=== PATIENT | female | born 1985 | race African-American/Black ===

== ENCOUNTER 2020-03-17 02:15 | Emergency (ER) | payer OTHER ==
[~2020-03-17] VITALS: Ht 175.3 cm; Wt 93.4 kg
[2020-03-17 02:24] VITALS: BP 116/73
[2020-03-17] MEDS ORDERED: Pantoprazole Inj IV ONE (02:30)
[2020-03-17] MEDS ORDERED: Mylanta II UD 30ml ORAL ONE (02:30)
--- NOTE | 2020-03-17 02:31 | Emergency Room Report ---
History of Present Illness General Chief Complaint: Abdominal Pain Source: Patient Present Illness HPI This is a 34-year-old female who is 1 para 0 approximately 13 weeks . She initially had a twin gestation but lost 1 at approximately 7 weeks. Since then she had follow-up and had normal ultrasound. She is Rh+. She presents with chief complaint of epigastric pain. She has intermittent vomiting with this . No fever chills. Has nausea and vomiting but no diarrhea. No urinary complaint. Pain is sharp and burning in nature. Pain is localized to the epigastric area. No radiation. It is 8 out of 10. Allergies: Coded Allergies: No Known Allergies (Unverified , 03/17/20) COVID-19 Screening Contact w/high risk pt: No Recent Travel to affected area: No Experienced COVID-19 symptoms?: No COVID-19 Testing performed APPLIANCE REPAIRER: No Patient History Past Medical History: see triage record, old chart reviewed Past Surgical History: none Pertinent Family History: none Social History: Denies: smoking Now: Yes : 1 Para: 0 Immunizations: other Reviewed Nursing Documentation: PMH: Agreed; PSxH: Agreed Nursing Documentation-PMH Past Medical History: No Stated History Review of Systems Eye: Denies: eye pain, blurred vision ENT: Denies: ear pain, nose congestion, throat swelling Respiratory: Denies: cough, shortness of breath Cardiovascular: Denies: chest pain, palpitations Gastrointestinal: Reports: abdominal pain, nausea, vomiting; Denies: diarrhea Musculoskeletal: Denies: back pain, joint pain Skin: Denies: rash Neurological: Denies: headache, numbness Endocrine: Denies: increased thirst, increased urine Hematologic/Lymphatic: Denies: easy bruising All Other Systems: negative except mentioned in HPI Physical Exam Vital Signs Date Time Temp Pulse Resp B/P (MAP) Pulse Ox O2 Delivery O2 Flow Rate FiO2 03/17/20 02:13 98.1 85 18 116/73 (87) 99 Vitals normal Sp02 EP Interpretation: reviewed, normal General Appearance: well appearing, no apparent distress, alert Head: normocephalic, atraumatic Eyes: bilateral eye PERRL, bilateral eye EOMI ENT: hearing grossly normal, normal pharynx Neck: full range of motion, supple, no meningismus Respiratory: chest non-tender, lungs clear, normal breath sounds Cardiovascular #1: regular rate, rhythm, no murmur Gastrointestinal: normal bowel sounds, non tender, no mass, no organomegaly, no bruit, non-distended, other - gravid Musculoskeletal: back normal, normal range of motion, gait/station normal Psychiatric: mood/affect normal Medical Decision Making Diagnostic Impression: Primary Impression: Gastritis Qualified Codes: K29.00 - Acute gastritis without bleeding Additional Impressions: Hyperemesis gravidarum UTI (urinary tract infection) Qualified Codes: N30.00 - Acute cystitis without hematuria ER Course Patient with epigastric pain. This is most likely secondary to gastritis/ reflux secondary to hyperemesis gravidarum. I did a bedside ultrasound and it showed a live IUP with good movement and heart rate. I also did a right upper quadrant bedside ultrasound I did not see any gallstone. Normal gallbladder and gallbladder wall. Negative Michelle sign. Symptoms improved. She is currently on Zofran already. Just started and is helping. Will continue with that. She complained of constipation and has no relief with MiraLAX. We will give her a small dose of lactulose. Last Vital Signs Date Time Temp Pulse Resp B/P (MAP) Pulse Ox O2 Delivery O2 Flow Rate FiO2 03/17/20 02:24 98.1 85 18 116/73 99 Status: improved Disposition: HOME, SELF-CARE Condition: Stable Scripts Lactulose (LACTULOSE*) 20 Gm/30 Ml Solution 30 ML ORAL DAILY, #240 ML 0 Refills Prov: Gonzalez Ortiz MD 03/17/20 Nitrofurantoin Monohyd/M-Cryst (Nitrofurantoin Lenoir-Mcr 100 mg) 100 Mg Capsule 100 MG ORAL Q12H, #14 CAP Prov: Gonzalez Ortiz MD 03/17/20 Patient Instructions: Abdominal Pain During Additional Instructions: Follow-up with your [facility]IST in 1 to 2 weeks if not better. Return if symptoms worsen. Gonzalez Ortiz MD Mar 17, 2020 02:31
[2020-03-17 03:15] LABS: BASOPHILS % (AUTO) 0.8 % (0.0-2.0); EOSINOPHILS % (AUTO) 1.1 % (0.0-3.0); HEMATOCRIT 33.1 % (37.0-47.0); HEMOGLOBIN 12.1 G/DL (12.0-16.0); LYMPHOCYTES % (AUTO) 24.9 % (20.0-45.0); MEAN CORPUSCULAR VOLUME 84 FL (80-99); MONOCYTES % (AUTO) 4.3 % (1.0-10.0); NEUTROPHILS % (AUTO) 68.9 % (45.0-75.0); PLATELET COUNT 252 K/UL (150-450); RED BLOOD COUNT 3.95 M/UL (4.20-5.40); RED CELL DISTRIBUTION WIDTH 11.2 % (11.6-14.8); WHITE BLOOD COUNT 9.2 K/UL (4.8-10.8)
[2020-03-17 03:16] LABS: BILIRUBIN, URINE NEGATIVE (NEGATIVE); GLUCOSE, URINE (UA) NEGATIVE (NEGATIVE); KETONES,URINE 1+ (NEGATIVE); LEUKOCYTE ESTERASE ,URINE 1+ (NEGATIVE); NITRITE,URINE NEGATIVE (NEGATIVE); PH,URINE 5 (4.5-8.0); PROTEIN,URINE 2+ (NEGATIVE); UROBILINOGEN,URINE 4 MG/DL (0.0-1.0)
[2020-03-17 03:26] LABS: ANION GAP 9 mmol/L (5-15); BLOOD UREA NITROGEN 6 mg/dL (7-18); CALCIUM 8.5 MG/DL (8.5-10.1); CARBON DIOXIDE 22 MMOL/L (21-32); CHLORIDE 101 MMOL/L (98-107); CREATININE 0.9 MG/DL (0.55-1.30); POTASSIUM 3.3 MMOL/L (3.5-5.1); SODIUM 132 MMOL/L (136-145)
[2020-03-17 03:27] LABS: APPEARANCE,URINE SLIGHTLY CLOUDY; COLOR,URINE YELLOW
[2020-03-17 03:30] LABS: ALANINE AMINOTRANSFERASE 35 U/L (12-78); ALBUMIN 3.3 G/DL (3.4-5.0); ALBUMIN/GLOBULIN RATIO 0.9 (1.0-2.7); ALKALINE PHOSPHATASE 60 U/L (46-116); ASPARTATE AMINO TRANSFERASE 35 U/L (15-37); BILIRUBIN,TOTAL 0.4 MG/DL (0.2-1.0)
[2020-03-17] MEDS ORDERED: MACROBID100 MG ORAL (03:38)
[2020-03-17] MEDS ORDERED: LACTULOSE20 GM/301 ORAL (03:38)
[2020-03-17] MEDS ORDERED: cefTRIAXone 1 GM in NS 55 ML IVPB ONE (03:45)
[2020-03-17] MEDS ORDERED: Metoclopramide 10mg/2ml Inj IVP ONE (03:45)
[2020-03-17 04:30] VITALS: BP 116/73
== END 2020-03-17 04:30 | disposition home or self-care (01) ==
LOC: EDBD 02:15 → EMR 02:30
DX: O21.0 Mild hyperemesis gravidarum (principal); Z3A.13 13 weeks gestation of pregnancy; O23.41 Unspecified infection of urinary tract in pregnancy, first trimester; N30.00 Acute cystitis without hematuria
CPT/HCPCS: 36415; 80053; 81003; 83690; 85025; 96361; 96365; 96375; 96376; 99284; C9113; J0696; J2405; J7030; J2765